=== PATIENT | female | born 1960 | race Caucasian/White ===

== ENCOUNTER → 2018-03-05 | Outpatient (CLI) | payer BC ==
[2018-03-05 11:55] LABS: ALBUMIN 4.4 g/dL (3.5-5.0); BUN/CREATININE RATIO 26.6 (6.0-26.0); CALCIUM 9.3 mg/dL (8.4-10.2); POTASSIUM 4.6 mmol/L (3.6-5.0); TOTAL BILIRUBIN 0.6 mg/dL (0.2-1.3); TOTAL PROTEIN 8.3 g/dL (6.3-8.2)
== END ==
LOC: LAB 11:16
PROVIDERS: Family Medicine
DX: Z13.6 Encounter for screening for cardiovascular disorders (principal); L98.9 Disorder of the skin and subcutaneous tissue, unspecified; L29.9 Pruritus, unspecified; R73.03 Prediabetes

== ENCOUNTER → 2018-04-10 | Outpatient (CLI) | payer BC | LOC: LAB 10:55 | DX: Z12.12 Encounter for screening for malignant neoplasm of rectum (principal) ==

== ENCOUNTER 2018-06-04 15:11 | Emergency (ER) | payer BC ==
[~2018-06-04] VITALS: Ht 157.5 cm; Wt 79.1 kg
[2018-06-04 16:09] LABS: EOS # 0.1 (0.04-0.40); HEMATOCRIT 42.7 % (37.0-47.0); HEMOGLOBIN 14.3 g/dL (12.5-16.0); LYMPH# 1.9 (1.50-4.00); MEAN CELL VOLUME 89 fl (78-100); MEAN CORPUSCULAR HEMOGLOBIN 30 pg (27-31); MEAN CORPUSCULAR HGB CONC 34 g/dL (33-37); MEAN PLATELET VOLUME 10.2 fl (7.4-10.4); MONO # 0.7 (0.20-0.80); NEU # 8.7 (1.40-6.50); PLATELET COUNT 277 K/mm3 (130-400); RED CELL DISTRIBUTION WIDTH 13.9 % (11.5-14.5); WHITE BLOOD COUNT 11.5 K/mm3 (4.8-10.8)
[2018-06-04] MEDS ORDERED: PRILOSEC OTC20 MG PO (16:17)
[2018-06-04] MEDS ORDERED: FEXOFENADINE H180 M1 (16:18)
[2018-06-04 16:21] LABS: ALBUMIN 4.4 g/dL (3.5-5.0); CALCIUM 9.7 mg/dL (8.4-10.2); POTASSIUM 3.7 mmol/L (3.6-5.0); TOTAL BILIRUBIN 0.6 mg/dL (0.2-1.3); TOTAL PROTEIN 7.6 g/dL (6.3-8.2)
[2018-06-04 16:54] VITALS: BP 143/72
== END 2018-06-04 17:11 | disposition short-term general hospital (02) ==
LOC: ED 15:11
PROVIDERS: Physician Assistant
DX: K35.80 Unspecified acute appendicitis (principal); E11.9 Type 2 diabetes mellitus without complications; Z87.891 Personal history of nicotine dependence; Z79.899 Other long term (current) drug therapy
CPT/HCPCS: J3010; Q9967

== ENCOUNTER → 2018-07-19 | Day surgery (SDC) | payer BC ==
[~2018-07-19] MED LIST: FEXOFENADINE H180 M1; PRILOSEC OTC20 MG PO
== END ==
LOC: MSO 07:08
DX: Z12.11 Encounter for screening for malignant neoplasm of colon (principal); D12.2 Benign neoplasm of ascending colon; K57.30 Diverticulosis of large intestine without perforation or abscess without bleeding; Z87.891 Personal history of nicotine dependence; K21.9 Gastro-esophageal reflux disease without esophagitis
CPT/HCPCS: 00811; J2704; J3010; J7120

== ENCOUNTER → 2018-10-02 | Outpatient (CLI) | payer BC | LOC: RAD 13:00 | DX: M47.816 Spondylosis without myelopathy or radiculopathy, lumbar region (principal); M47.814 Spondylosis without myelopathy or radiculopathy, thoracic region; M19.022 Primary osteoarthritis, left elbow; M77.32 Calcaneal spur, left foot; M25.572 Pain in left ankle and joints of left foot; R07.9 Chest pain, unspecified ==

== ENCOUNTER → 2020-02-29 | Outpatient (CLI) | payer BC ==
[2020-02-29 10:46] LABS: HEMATOCRIT 43.1 % (37.0-47.0); HEMOGLOBIN 14.1 g/dL (12.5-16.0); MEAN PLATELET VOLUME 9.3 fl (7.4-10.4); RED BLOOD COUNT 4.69 M/mm3 (4.10-5.30); RED CELL DISTRIBUTION WIDTH 12.9 % (11.5-14.5); WHITE BLOOD COUNT 6.2 K/mm3 (4.8-10.8)
== END ==
LOC: LAB 10:36
PROVIDERS: Family Medicine
DX: M19.071 Primary osteoarthritis, right ankle and foot (principal); M77.31 Calcaneal spur, right foot

== ENCOUNTER 2020-03-03 16:24 | Emergency (ER) | payer BC ==
[~2020-03-03] VITALS: Ht 157.5 cm; Wt 85.9 kg
[2020-03-03 17:04] LABS: EOS # 0.2 (0.04-0.40); EOS % 3.9 % (1.0-5.0); HEMATOCRIT 40.6 % (37.0-47.0); HEMOGLOBIN 13.6 g/dL (12.5-16.0); LYMPH# 2.2 (1.50-4.00); MEAN CELL VOLUME 92 fl (78-100); MEAN CORPUSCULAR HEMOGLOBIN 31 pg (27-31); MEAN CORPUSCULAR HGB CONC 34 g/dL (33-37); MEAN PLATELET VOLUME 9.4 fl (7.4-10.4); MONO # 0.4 (0.20-0.80); NEU # 2.8 (1.40-6.50); PLATELET COUNT 254 K/mm3 (130-400); RED BLOOD COUNT 4.42 M/mm3 (4.10-5.30); WHITE BLOOD COUNT 5.7 K/mm3 (4.8-10.8)
[2020-03-03] MEDS ORDERED: TRAMADOL 50 MG TAB PO (17:09)
[2020-03-03] MEDS ORDERED: NAPROXEN CR500 MG PO (17:09)
[2020-03-03 18:01] LABS: ERYTHROCYTE SEDIMENTATION RATE 13 mm/hr (0-30)
[2020-03-03 18:28] VITALS: BP 163/78
== END 2020-03-03 18:29 | disposition home or self-care (01) ==
LOC: ED 16:24
PROVIDERS: Family Medicine
DX: M77.41 Metatarsalgia, right foot (principal)
CPT/HCPCS: J1885; L4386

== ENCOUNTER → 2021-03-11 | Outpatient (CLI) | payer BC ==
[~2021-03-11] MED LIST changes: +NAPROXEN CR500 MG PO; +TRAMADOL 50 MG TAB PO
[2021-03-11 09:19] LABS: BASO # 0.05 (0.02-0.10); EOS # 0.22 (0.04-0.40); HEMOGLOBIN 14.9 g/dL (12.5-16.0); LYMPH# 1.68 (1.50-4.00); MEAN CELL VOLUME 91 fl (78-100); MEAN CORPUSCULAR HEMOGLOBIN 30 pg (27-31); MEAN CORPUSCULAR HGB CONC 33 g/dL (33-37); MONO # 0.34 (0.20-0.80); NEU # 3.21 (1.40-6.50); PLATELET COUNT 236 K/mm3 (130-400); RED BLOOD COUNT 4.94 M/mm3 (4.10-5.30); RED CELL DISTRIBUTION WIDTH 12.9 % (11.5-14.5); WHITE BLOOD COUNT 5.5 K/mm3 (4.8-10.8)
[2021-03-11 09:27] LABS: POTASSIUM 4.8 mmol/L (3.5-5.1)
[2021-03-11 09:28] LABS: ALBUMIN 4.2 g/dL (3.5-5.0)
[2021-03-11 09:29] LABS: CALCIUM 9.4 mg/dL (8.3-10.5)
[2021-03-11 09:30] LABS: TOTAL PROTEIN 7.5 g/dL (6.4-8.3)
[2021-03-11 09:32] LABS: TOTAL BILIRUBIN 0.6 mg/dL (0.2-1.2)
== END ==
LOC: LAB 09:00
PROVIDERS: Family Medicine
DX: Z00.00 Encounter for general adult medical examination without abnormal findings (principal); Z13.6 Encounter for screening for cardiovascular disorders

== ENCOUNTER → 2021-03-19 | Outpatient (CLI) | payer BC | LOC: MAMMO 03-13 14:30 | DX: Z12.31 Encounter for screening mammogram for malignant neoplasm of breast (principal) ==

== ENCOUNTER → 2021-03-25 | Outpatient (CLI) | payer BC | LOC: LAB 07:50 | DX: R73.9 Hyperglycemia, unspecified (principal) ==

== ENCOUNTER → 2021-04-15 | Outpatient (CLI) | payer BC | LOC: LAB 15:39 | DX: Z20.822 Contact with and (suspected) exposure to COVID-19 (principal) ==

== ENCOUNTER → 2021-05-31 | Outpatient (CLI) | payer BC | LOC: RAD 09:28 | DX: R05 Cough (principal); R06.00 Dyspnea, unspecified ==

== ENCOUNTER → 2024-01-11 | Outpatient (CLI) | payer OTHER | LOC: LAB 15:16 | DX: E78.2 Mixed hyperlipidemia (principal) ==

== ENCOUNTER → 2024-01-25 | Day surgery (SDC) | payer OTHER ==
[~2024-01-25] MED LIST changes: +fentaNYL 100 MCG/2 ML VIAL IV SCH
== END | disposition home or self-care (01) ==
LOC: MSO 07:27
DX: Z12.11 Encounter for screening for malignant neoplasm of colon (principal); D12.0 Benign neoplasm of cecum; K57.30 Diverticulosis of large intestine without perforation or abscess without bleeding; G47.33 Obstructive sleep apnea (adult) (pediatric); E66.01 Morbid (severe) obesity due to excess calories
CPT/HCPCS: 00811; J2704; J3010; J7120

== ENCOUNTER → 2024-08-15 | Outpatient (CLI) | payer OTHER ==
[~2024-08-15] MED LIST changes: -fentaNYL 100 MCG/2 ML VIAL IV SCH
[2024-08-15 09:52] LABS: HEMATOCRIT 44.2 % (37.0-47.0); HEMOGLOBIN 14.3 g/dL (12.5-16.0); MEAN PLATELET VOLUME 9.2 fl (7.4-10.4); RED BLOOD COUNT 4.71 M/mm3 (4.10-5.30); RED CELL DISTRIBUTION WIDTH 13.2 % (11.5-14.5); WHITE BLOOD COUNT 6.9 K/mm3 (4.8-10.8)
[2024-08-15 10:00] LABS: ALBUMIN 4.2 g/dL (3.4-4.8)
[2024-08-15 10:01] LABS: CALCIUM 10.4 mg/dL (8.3-10.5)
[2024-08-15 10:02] LABS: TOTAL PROTEIN 7.4 g/dL (6.2-8.1)
[2024-08-15 10:04] LABS: TOTAL BILIRUBIN 0.3 mg/dL (0.2-1.2)
[2024-08-16 00:54] LABS: HEPATITIS C VIRUS ANTIBODY Nonreactive (Nonreactiv)
== END ==
LOC: LAB 09:41
PROVIDERS: Family Medicine
DX: Z13.1 Encounter for screening for diabetes mellitus (principal); Z11.4 Encounter for screening for human immunodeficiency virus [HIV]; Z11.59 Encounter for screening for other viral diseases; R03.0 Elevated blood-pressure reading, without diagnosis of hypertension

== ENCOUNTER → 2024-08-25 | Outpatient (CLI) | payer OTHER | LOC: MAMMO 09:00 | DX: Z12.31 Encounter for screening mammogram for malignant neoplasm of breast (principal) ==